=== PATIENT | male | born 1995 | race Caucasian/White ===

== ENCOUNTER 2018-08-11 12:46 | Emergency (ER) | payer OTHER ==
--- NOTE | 2018-08-11 12:55 | Emergency Department Report ---
Blank Doc - Documentation Documentation: This is a 23-year-old male that presents with abdominal discomfort as achimg, cramping and bloating sensation. This initial assessment/diagnostic orders/clinical plan/treatment(s) is/are subject to change based on patient's health status, clinical progression and re-assessment by fellow clinical providers in the ED. Further treatment and workup at subsequent clinical providers discretion. Patient/guardians urged not to elope from the ED as their condition may be serious if not clinically assessed and managed. Initial orders include: 1- Patient sent to [facility] for further evaluation and treatment 2- labs
[2018-08-11 14:14] LABS: Basophils % (Auto) 0.5 % (0.0-1.8); Eosinophils % (Auto) 0.8 % (0.0-4.3); Hematocrit 45.4 % (35.5-45.6); Hemoglobin 15.2 gm/dl (11.8-15.2); Lymphocytes # (Auto) 1.7 K/mm3 (1.2-5.4); Lymphocytes % (Auto) 30.1 % (13.4-35.0); Mean Corpuscular HGB Conc 33 % (32-34); Mean Corpuscular Volume 92 fl (84-94); Monocytes # (Auto) 0.3 K/mm3 (0.0-0.8); Monocytes % (Auto) 5.2 % (0.0-7.3); Red Blood Count 4.95 M/mm3 (3.65-5.03); Red Cell Distribution Width 13.9 % (13.2-15.2)
[2018-08-11 14:17] LABS: Platelet Count 144 K/mm3 (140-440)
[2018-08-11 14:33] LABS: Alanine Aminotransferase 17 units/L (7-56); Albumin 4.9 g/dL (3.9-5); BUN/Creatinine Ratio 14; Blood Urea Nitrogen 10 mg/dL (9-20); Calcium 10.3 mg/dL (8.4-10.2); Hemolysis Index 63
[2018-08-11 14:50] LABS: Bilirubin,Direct < 0.2 mg/dL (0-0.2)
[2018-08-11] MEDS ORDERED: LIDOCAINE VISCOUS 2% PO ONE (15:30)
[2018-08-11] MEDS ORDERED: ALUM-MAG HYDROX-SIMETH 200-200-20MG/5ML PO ONE (15:30)
[2018-08-11 15:47] LABS: Bilirubin,Urine NEG (Negative); Blood,Urine NEG (Negative); Color,Urine Yellow (Yellow); Mucus,Urine 3+ /HPF; Protein,Urine <15 mg/dL mg/dL (Negative)
[2018-08-11] MEDS ORDERED: BENTYL PO ONE (16:00)
--- NOTE | 2018-08-11 16:17 | Emergency Department Report ---
ED Abdominal Pain HPI - General Chief Complaint: Abdominal Pain Stated Complaint: STOMACH PAIN Time Seen by Provider: 08/11/18 12:54 Source: patient Mode of arrival: Ambulatory Limitations: No Limitations - History of Present Illness Initial Comments: Pt is a 23 yo male who presents to the ED with c/o left sided abd pain that began 3 days ago. He describes it as a cramping. He states that he feels "bloated." The patient states he does feel constipated. He has associated nausea. He denies any emesis, urinary sx, fever, or diarrhea. He denies any PMHx . He denies any medication allergies. He states he is a vegetarian. Severity scale (0 -10): 5 - Related Data Previous Rx's Medication Instructions Recorded Last Taken Type Dicyclomine [Bentyl] 10 mg PO DAILY PRN #14 capsule 08/11/18 Unknown Rx Docusate Sodium [Colace] 100 mg PO BID 7 Days #14 capsule 08/11/18 Unknown Rx Polyethylene Glycol 3350 [Miralax] 119 gm PO DAILY PRN #7 powder 08/11/18 Unknown Rx Allergies Allergy/AdvReac Type Severity Reaction Status Date / Time No Known Allergies Allergy Unverified 08/11/18 12:47 ED Review of Systems ROS: Stated complaint: STOMACH PAIN Other details as noted in HPI Comment: All other systems reviewed and negative ED Past Medical Hx - Past Medical History Previous Medical History?: No - Surgical History Past Surgical History?: No - Social History Smoking Status: Never Smoker Substance Use Type: Marijuana - Medications Home Medications: Home Medications Medication Instructions Recorded Confirmed Last Taken Type Dicyclomine [Bentyl] 10 mg PO DAILY PRN #14 capsule 08/11/18 Unknown Rx Docusate Sodium [Colace] 100 mg PO BID 7 Days #14 capsule 08/11/18 Unknown Rx Polyethylene Glycol 3350 [Miralax] 119 gm PO DAILY PRN #7 powder 08/11/18 Unknown Rx ED Physical Exam - General Limitations: No Limitations General appearance: alert, in no apparent distress - Head Head exam: Present: atraumatic, normocephalic - Eye Eye exam: Present: normal appearance - ENT ENT exam: Present: mucous membranes moist - Respiratory Respiratory exam: Present: normal lung sounds bilaterally. Absent: respiratory distress, wheezes, rales, rhonchi, stridor, chest wall tenderness, accessory muscle use, decreased breath sounds, prolonged expiratory - Cardiovascular Cardiovascular Exam: Present: regular rate, normal rhythm, normal heart sounds. Absent: systolic murmur, diastolic murmur, rubs, gallop - GI/Abdominal GI/Abdominal exam: Present: soft, normal bowel sounds. Absent: distended, tenderness, guarding, rebound, rigid - Back Exam Back exam: Absent: CVA tenderness (R), CVA tenderness (L) - Neurological Exam Neurological exam: Present: alert, oriented X3 - Psychiatric Psychiatric exam: Present: normal affect, normal mood - Skin Skin exam: Present: warm, dry, intact ED Course Vital Signs 08/11/18 08/11/18 12:54 16:50 Temperature 98.4 F Pulse Rate 96 H 90 Respiratory 18 16 Rate Blood Pressure 103/57 Blood Pressure 106/60 [Left] O2 Sat by Pulse 100 100 Oximetry ED Medical Decision Making - Lab Data Result diagrams: 08/11/18 13:27 08/11/18 13:27 Lab Results 08/11/18 08/11/18 08/11/18 Range/Units 13:27 13:27 Unknown WBC 5.8 (4.5-11.0) K/mm3 RBC 4.95 (3.65-5.03) M/mm3 Hgb 15.2 (11.8-15.2) gm/dl Hct 45.4 (35.5-45.6) % MCV 92 (84-94) fl MCH 31 (28-32) pg MCHC 33 (32-34) % RDW 13.9 (13.2-15.2) % Plt Count 144 (140-440) K/mm3 Lymph % (Auto) 30.1 (13.4-35.0) % [place] % (Auto) 5.2 (0.0-7.3) % Eos % (Auto) 0.8 (0.0-4.3) % Baso % (Auto) 0.5 (0.0-1.8) % Lymph # 1.7 (1.2-5.4) K/mm3 [place] # 0.3 (0.0-0.8) K/mm3 Eos # 0.0 (0.0-0.4) K/mm3 Baso # 0.0 (0.0-0.1) K/mm3 Seg Neutrophils % 63.4 (40.0-70.0) % Seg Neutrophils # 3.7 (1.8-7.7) K/mm3 Sodium 141 (137-145) mmol/L Potassium 4.1 (3.6-5.0) mmol/L Chloride 100.9 (98-107) mmol/L Carbon Dioxide 26 (22-30) mmol/L Anion Gap 18 mmol/L BUN 10 (9-20) mg/dL Creatinine 0.7 L (0.8-1.5) mg/dL Estimated GFR > 60 ml/min BUN/Creatinine Ratio 14 % Glucose 99 (75-100) mg/dL Calcium 10.3 H (8.4-10.2) mg/dL Total Bilirubin 0.80 (0.1-1.2) mg/dL Direct Bilirubin < 0.2 (0-0.2) mg/dL Indirect Bilirubin 0.6 mg/dL AST 24 (5-40) units/L ALT 17 (7-56) units/L Alkaline Phosphatase 63 (35-129) units/L Total Protein 8.1 (6.3-8.2) g/dL Albumin 4.9 (3.9-5) g/dL Albumin/Globulin Ratio 1.5 % Lipase 14 (13-60) units/L Urine Color Yellow (Yellow) Urine Turbidity Clear (Clear) Urine pH 6.0 (5.0-7.0) Ur Specific [place] 1.038 H (1.003-1.030) Urine Protein <15 mg/dl (Negative) mg/dL Urine Glucose (UA) Neg (Negative) mg/dL Urine Ketones Tr (Negative) mg/dL Urine Blood Neg (Negative) Urine Nitrite Neg (Negative) Urine Bilirubin Neg (Negative) Urine Urobilinogen 4.0 (<2.0) mg/dL Ur Leukocyte Esterase Neg (Negative) Urine WBC (Auto) 3.0 (0.0-6.0) /HPF Urine RBC (Auto) 3.0 (0.0-6.0) /HPF Urine Mucus 3+ /HPF - Radiology Data Radiology results: report reviewed XR abdomen: some stool in the colon, otherwise normal - Medical Decision Making Pt is a 23 yo male who presents to the ED with c/o left sided abd pain that began 3 days ago. He describes it as a cramping. He states that he feels "bloat ed." The patient states he does feel constipated. He has associated nausea. He denies any emesis, urinary sx, fever, or diarrhea. He denies any PMHx. He denies any medication allergies. He states he is a vegetarian. VSS. no abdominal tenderness on exam, normal bowel sounds. labs WNL. UA is normal. XR abdomen shows some stool otherwise normal. Pt given GI cocktail and symptoms completely resolved. Pt given medication for constipation and bentyl. Advised to follow up with PCP in the next 2-3 days. Return to the emergency room for any new or worsening symptoms. Critical care attestation.: If time is entered above; I have spent that time in minutes in the direct care o f this critically ill patient, excluding procedure time. ED Disposition Clinical Impression: Abdominal pain Qualifiers: Abdominal location: generalized Qualified Code(s): R10.84 - Generalized abdominal pain Constipation Qualifiers: Constipation type: unspecified constipation type Qualified Code(s): K59.00 - Constipation, unspecified Disposition: TO HOME OR SELFCARE Is pt being admited?: No Does the pt Need Aspirin: No Condition: Stable Instructions: Constipation (ED), High Fiber Diet (ED), Abdominal Pain (ED) Additional Instructions: Please follow up with a primary care doctor in the next 2-3 days. Please take medication as prescribed. Return to the emergency room immediately for any new or worsening symptoms as discussed. Prescriptions: Dicyclomine [Bentyl] 10 mg PO DAILY PRN #14 capsule PRN Reason: Spasms Docusate Sodium [Colace] 100 mg PO BID 7 Days #14 capsule Polyethylene Glycol 3350 [Miralax] 119 gm PO DAILY PRN #7 powder PRN Reason: Constipation [facility] [Primary Care Provider[facility] - 2-3 Days Time of Disposition: 16:42 Print Language: CITIZEN OF [place]
--- NOTE | 2018-08-11 16:21 | XRay Report ---
PROCEDURE: XR ABDOMEN 2V TECHNIQUE: Abdominal series, including supine and upright AP views. HISTORY: constipation, cramping FINDINGS: Supine and erect views of the abdomen were acquired and demonstrate air within nondistended loops of small bowel and large bowel. No bowel obstruction is seen. Some stool seen in the colon. The patient does not appear to be overly constipated. IMPRESSION: No bowel obstruction This document is electronically signed by Robel Bravo MD., August 11 2018 04:18:51 PM ET
[2018-08-11 16:52] VITALS: BP 106/60
== END 2018-08-11 16:49 | disposition home or self-care (01) ==
LOC: ED 12:46
DX: K59.00 Constipation, unspecified (principal); F12.10 Cannabis abuse, uncomplicated
CPT/HCPCS: 36415; 74019; 80048; 80076; 81001; 83690; 85025

== ENCOUNTER 2018-09-26 18:46 | Emergency (ER) | payer SELFPAY ==
--- NOTE | 2018-09-26 20:19 | Event Note ---
ED Screening Note ED Screening Note: pt presents for suprapubic abd pain pt believes he has a hernia in the "left testicle," c/o left testicle pain for a week pt is vegetarian normal BM yesterday no N/V no fever small amount of clear penile discharge +urgency, +decreased urination +smoker no drug use no ETOH use This initial assessment/diagnostic orders/clinical plan/treatment(s) is/are subject to change based on patients health status, clinical progression and re- assessment by fellow clinical providers in the ED. Further treatment and workup at subsequent clinical providers discretion. Patient/guardian urged not to elope from the ED as their condition may be serious if not clinically assessed and managed. Initial orders include: UA, scrotal US
[2018-09-26 21:36] LABS: Bilirubin,Urine NEG (Negative); Blood,Urine NEG (Negative); Color,Urine Yellow (Yellow); Mucus,Urine 3+ /HPF; Protein,Urine <15 mg/dL mg/dL (Negative)
[2018-09-26 21:37] LABS: WBC,Urine < 1.0 /HPF (0.0-6.0)
--- NOTE | 2018-09-26 22:04 | Ultrasound Report ---
PROCEDURE: US TESTICULAR DOPPLER COMP TECHNIQUE: Scrotal ultrasound HISTORY: left testicular pain COMPARISONS: None FINDINGS: Examination of the testicles demonstrates both to be normal in size and normal and homogeneous in ech ogenicity with normal blood flow bilaterally. No focal abnormality is noted in either testicle. The r ight testicle measures 3.9 x 2.1 x 4.0 cm and the left measures 3.7 x 1.9 x 2.9 cm. Both epididymides appear normal in size and echogenicity with normal blood flow. No focal abnormality is noted. No evidence for hydroceles or varicoceles are present bilaterally. IMPRESSION: Negative testicular ultrasound This document is electronically signed by Vicki Grande MD., September 26 2018 10:02:42 PM ET
[2018-09-26 22:07] LABS: Basophils % (Auto) 0.4 % (0.0-1.8); Eosinophils % (Auto) 0.4 % (0.0-4.3); Hematocrit 43.8 % (35.5-45.6); Hemoglobin 15.1 gm/dl (11.8-15.2); Lymphocytes % (Auto) 31.3 % (13.4-35.0); Mean Corpuscular HGB Conc 34 % (32-34); Mean Corpuscular Volume 90 fl (84-94); Monocytes # (Auto) 0.4 K/mm3 (0.0-0.8); Monocytes % (Auto) 6.4 % (0.0-7.3); Platelet Count 152 K/mm3 (140-440); Red Blood Count 4.87 M/mm3 (3.65-5.03); Red Cell Distribution Width 12.9 % (13.2-15.2)
[2018-09-26 23:01] LABS: Alanine Aminotransferase 12 units/L (7-56); Albumin 4.8 g/dL (3.9-5); BUN/Creatinine Ratio 17; Blood Urea Nitrogen 12 mg/dL (9-20); Hemolysis Index 3
--- NOTE | 2018-09-26 23:19 | Emergency Department Report ---
ED Male HPI - General Chief complaint: Urogenital-Male Stated complaint: BODY PAIN ALL OVER Time Seen by Provider: 09/26/18 20:15 Source: patient Mode of arrival: Ambulatory Limitations: No Limitations - History of Present Illness MD Complaint: testicle pain (left), dysuria, groin pain, other (Suprapubic pressure) -: Gradual, week(s) (1) Location: left testicle, right inguinal region, left inguinal region Radiation: none Severity: moderate Severity scale (0 -10): 4 Quality: aching, dull Consistency: constant Improves with: none Worsens with: palpation, movement new medication denies other symptoms. denies: discharge, swelling, mass, rash, urinary retention, blood in urine, dysuria, fever, nausea/vomiting, incontinence - Related Data Sexually active: Yes Previous Rx's Medication Instructions Recorded Last Taken Type Dicyclomine [Bentyl] 10 mg PO DAILY PRN #14 capsule 08/11/18 Unknown Rx Docusate Sodium [Colace] 100 mg PO BID 7 Days #14 capsule 08/11/18 Unknown Rx Polyethylene Glycol 3350 [Miralax] 119 gm PO DAILY PRN #7 powder 08/11/18 Unknown Rx Naproxen [Naprosyn] 500 mg PO Q12H PRN #20 tablet 09/26/18 Unknown Rx Allergies Allergy/AdvReac Type Severity Reaction Status Date / Time No Known Allergies Allergy Verified 09/26/18 18:47 ED Review of Systems ROS: Stated complaint: BODY PAIN ALL OVER Other details as noted in HPI Comment: All other systems reviewed and negative Constitutional: denies: chills, fever Eyes: denies: eye pain, eye discharge, vision change ENT: denies: ear pain, throat pain Respiratory: denies: cough, shortness of breath, wheezing Cardiovascular: denies: chest pain, palpitations Endocrine: no symptoms reported Gastrointestinal: abdominal pain (suprapubic pressure). denies: nausea, diarrhea Genitourinary: urgency, dysuria, frequency, testicular pain (left). denies: hematuria, discharge Musculoskeletal: denies: back pain, joint swelling, arthralgia Skin: denies: rash, lesions Neurological: denies: headache, weakness, paresthesias Psychiatric: denies: anxiety, depression Hematological/Lymphatic: denies: easy bleeding, easy bruising ED Past Medical Hx - Past Medical History Previous Medical History?: No - Surgical History Past Surgical History?: No - Social History Smoking Status: Current Every Day Smoker Substance Use Type: None - Medications Home Medications: Home Medications Medication Instructions Recorded Confirmed Last Taken Type Dicyclomine [Bentyl] 10 mg PO DAILY PRN #14 capsule 08/11/18 Unknown Rx Docusate Sodium [Colace] 100 mg PO BID 7 Days #14 capsule 08/11/18 Unknown Rx Polyethylene Glycol 3350 [Miralax] 119 gm PO DAILY PRN #7 powder 08/11/18 Unknown Rx Naproxen [Naprosyn] 500 mg PO Q12H PRN #20 tablet 09/26/18 Unknown Rx ED Physical Exam - General Limitations: No Limitations General appearance: alert, in no apparent distress - Head Head exam: Present: atraumatic, normocephalic, normal inspection - Eye Eye exam: Present: normal appearance, PERRL, EOMI Pupils: Present: normal accommodation - ENT ENT exam: Present: normal exam, mucous membranes moist, TM's normal bilaterally, normal external ear exam - Neck Neck exam: Present: normal inspection, full ROM. Absent: tenderness - Respiratory Respiratory exam: Present: normal lung sounds bilaterally. Absent: respiratory distress, wheezes, rales, rhonchi, chest wall tenderness, decreased breath sounds, prolonged expiratory - Cardiovascular Cardiovascular Exam: Present: regular rate, normal rhythm, normal heart sounds. Absent: systolic murmur, diastolic murmur, rubs, gallop - GI/Abdominal GI/Abdominal exam: Present: soft, normal bowel sounds. Absent: tenderness, guarding, rebound, hyperactive bowel sounds - Rectal Rectal exam: Present: deferred - exam: Present: normal inspection. Absent: testicular tenderness, urethral discharge, scrotal swelling, vertical testicular lie External exam: Present: normal external exam. Absent: erythema, swelling - Extremities Exam Extremities exam: Present: normal inspection, full ROM, normal capillary refill - Back Exam Back exam: Present: normal inspection, full ROM. Absent: tenderness, CVA tenderness (R), CVA tenderness (L), muscle spasm, paraspinal tenderness, vertebral tenderness - Neurological Exam Neurological exam: Present: alert, oriented X3, CN II-XII intact, normal gait, reflexes normal - Psychiatric Psychiatric exam: Present: normal affect, normal mood - Skin Skin exam: Present: warm, dry, intact, normal color. Absent: rash ED Course Vital Signs 09/26/18 20:15 Temperature 98.1 F Pulse Rate 74 Respiratory 18 Rate Blood Pressure 108/58 O2 Sat by Pulse 99 Oximetry - Reevaluation(s) Reevaluation #1: 09/26/18 23:21 Patient is alert and oriented 3 and is not in any distress. Lab test results were reviewed and are unremarkable. Testicular ultrasound shows normal acute process. Patient was discharged home and advised follow-up with the urologist Dr. Champagne in 2-3 days for reevaluation. Patient advised to return to the ED immediately if symptoms get worse. ED Medical Decision Making - Lab Data Result diagrams: 09/26/18 21:46 09/26/18 21:46 - Radiology Data Radiology results: report reviewed, image reviewed Normal testicles. No acute process - Medical Decision Making Patient is alert and oriented 3 and is not in any distress. Lab test results were reviewed and are unremarkable. Testicular ultrasound shows normal acute process. Patient was discharged home and advised follow-up with the urologist Dr. Champagne in 2-3 days for reevaluation. Patient advised to return to the ED immediately if symptoms get worse. - Differential Diagnosis Inguinal muscle strain; Testicular pain, epididymitis, Critical care attestation.: If time is entered above; I have spent that time in minutes in the direct care of this critically ill patient, excluding procedure time. ED Disposition Clinical Impression: Left testicular pain Inguinal muscle strain Qualifiers: Encounter type: initial encounter Qualified Code(s): S39.013A - Strain of muscle, fascia and tendon of pelvis, initial encounter Disposition: - TO HOME OR SELFCARE Is pt being admited?: No Does the pt Need Aspirin: No Condition: Stable Instructions: Muscle Strain (ED), Groin Strain (ED), Testicle Pain (ED) Additional Instructions: Take medications with food, drink plenty of fluids and follow-up with Dr. Champagne the Urologist publications manager for further evaluation in 3-5 days. Return to ED immediately if symptoms get worse. Prescriptions: Naproxen [Naprosyn] 500 mg PO Q12H PRN #20 tablet PRN Reason: Pain , Severe (7-10) Referrals: MIKE MORENO MD [Primary Care Provider] - 3-5 Days Time of Disposition: 23:25 Print Language: [place]
[2018-09-26 23:40] VITALS: BP 111/62
== END 2018-09-26 23:39 | disposition home or self-care (01) ==
LOC: ED 18:46
DX: S39.013A Strain of muscle, fascia and tendon of pelvis, initial encounter (principal); F17.200 Nicotine dependence, unspecified, uncomplicated; X58.XXXA Exposure to other specified factors, initial encounter; Y93.89 Activity, other specified; Y92.89 Other specified places as the place of occurrence of the external cause; Y99.8 Other external cause status
CPT/HCPCS: 36415; 80053; 81001; 83690; 85025; 93975

== ENCOUNTER 2019-04-25 18:46 | Emergency (ER) | payer SELFPAY ==
[2019-04-25 19:13] VITALS: BP 92/41
--- NOTE | 2019-04-25 22:53 | Emergency Department Report ---
ED Rash HPI - HPI Chief Complaint: Skin Rash Stated Complaint: ALLERGIC REACTION Time Seen by Provider: 04/25/19 21:59 Duration: 3 Days Suspected Cause: Medication Rash Symptoms: Yes Itching, No Facial Swelling, No Tongue/Oral Swelling, No Breathing Difficulties, No Choking Sensation, No Lightheaded, No Malaise, No Myalgias ED Review of Systems ROS: Stated complaint: ALLERGIC REACTION Other details as noted in HPI Comment: All other systems reviewed and negative ED Past Medical Hx - Past Medical History Previous Medical History?: No - Surgical History Past Surgical History?: Yes Additional Surgical History: rhinoplasty - Social History Smoking Status: Current Every Day Smoker Substance Use Type: Marijuana - Medications Home Medications: Home Medications Medication Instructions Recorded Confirmed Last Taken Type Dicyclomine [Bentyl] 10 mg PO DAILY PRN #14 capsule 08/11/18 Unknown Rx Docusate Sodium [Colace] 100 mg PO BID 7 Days #14 capsule 08/11/18 Unknown Rx Polyethylene Glycol 3350 [Miralax] 119 gm PO DAILY PRN #7 powder 08/11/18 Unknown Rx Naproxen [Naprosyn] 500 mg PO Q12H PRN #20 tablet 09/26/18 Unknown Rx Mometasone Furoate [Elocon] 45 gm TP BID #1 cream..g. 04/25/19 Unknown Rx Permethrin 5% [Acticin 5% CREAM] 60 gm TP ONCE #1 tube 04/25/19 Unknown Rx hydrOXYzine HCL [Atarax] 25 mg PO Q6HR PRN #20 tablet 04/25/19 Unknown Rx Rash Exam - Exam General: Vital signs noted. No distress. Alert and acting appropriately. HEENT: No Periorbital Edema, No Conjuctival Injection, No Chemosis, No Perioral Edema, No Tongue Edema, No Uvular Edema, No Compromised Airway, No Drooling Lungs: Yes Good Air Exchange (Normal Breath Sounds), No Wheezes, No Ronchi, No Stridor, No Cough, No Labored Respirations, No Retractions, No Use of Accessory Muscles, No Other Abnormal Lung Sounds Heart: Yes Regular, No Murmur Skin: Yes Maculopapular Rash (rash to the creases of the arm and the posterior leg and crevices of the thighs axillary region), Yes Erythema, No Urticarial Rash, No Morbilliform rash, No Bulla(e), No Excoriations, No Weeping, No Edema, No Encrustations Other: Positive: Abdomen Normal, Neurologic Normal, Musculoskeletal Normal ED Course Vital Signs 04/25/19 19:11 Temperature 97.8 F Pulse Rate 78 Respiratory 18 Rate Blood Pressure 92/41 O2 Sat by Pulse 96 Oximetry ED Medical Decision Making - Medical Decision Making This is a 24 year old male patient who presents with rash for the past week, consistent with exanthem. Differential diagnosis includes contact//atopic//eczematous dermatitis, psoriasis, scabies. History and exam findings not consistent with dangerous etiologies of rash such as SJS/TEN, or secondary dangerous causes such as petechial rashes from thrombocytopenia or rickettsial infections. Plan at this time is to treat symptomatically, instruct to follow up with PCP or derm PRN. Critical care attestation.: If time is entered above; I have spent that time in minutes in the direct care of this critically ill patient, excluding procedure time. ED Disposition Clinical Impression: Rash Disposition: DC-01 TO HOME OR SELFCARE Is pt being admited?: No Does the pt Need Aspirin: No Condition: Stable Instructions: Acute Rash (ED), Scabies (ED) Prescriptions: Permethrin 5% [Acticin 5% CREAM] 60 gm TP ONCE #1 tube hydrOXYzine HCL [Atarax] 25 mg PO Q6HR PRN #20 tablet PRN Reason: Itching Mometasone Furoate [Elocon] 45 gm TP BID #1 cream..g. Referrals: TAYLOR SHUKLA MD [Staff Physician] - 3-5 Days
== END 2019-04-25 22:52 | disposition home or self-care (01) ==
LOC: ED 18:46
DX: R21 Rash and other nonspecific skin eruption (principal); L29.9 Pruritus, unspecified; F17.200 Nicotine dependence, unspecified, uncomplicated; F12.10 Cannabis abuse, uncomplicated; Z79.899 Other long term (current) drug therapy
CPT/HCPCS: 99282

== ENCOUNTER 2019-10-31 02:31 | Emergency (ER) | payer SELFPAY ==
[2019-10-31 03:47] LABS: Bilirubin,Urine NEG (Negative); Blood,Urine LG (Negative); Color,Urine Yellow (Yellow); Mucus,Urine 3+ /HPF; Urobilinogen,Urine < 2.0 mg/dL (<2.0)
[2019-10-31 04:14] LABS: RBC,Urine > 182.0 /HPF (0.0-6.0)
[2019-10-31 04:27] LABS: Basophils % (Auto) 0.3 % (0.0-1.8); Eosinophils # (Auto) 0.1 K/mm3 (0.0-0.4); Hematocrit 43.9 % (35.5-45.6); Hemoglobin 14.8 gm/dl (11.8-15.2); Lymphocytes # (Auto) 2.8 K/mm3 (1.2-5.4); Lymphocytes % (Auto) 40.8 % (13.4-35.0); Mean Corpuscular HGB Conc 34 % (32-34); Mean Corpuscular Volume 91 fl (84-94); Monocytes # (Auto) 0.5 K/mm3 (0.0-0.8); Platelet Count 150 K/mm3 (140-440); Red Blood Count 4.82 M/mm3 (3.65-5.03); Red Cell Distribution Width 13.1 % (13.2-15.2)
[2019-10-31 05:03] LABS: Alanine Aminotransferase 11 units/L (7-56); Albumin 4.7 g/dL (3.9-5); BUN/Creatinine Ratio 19; Blood Urea Nitrogen 13 mg/dL (9-20); Calcium 9.9 mg/dL (8.4-10.2); Hemolysis Index 12
--- NOTE | 2019-10-31 08:38 | Cat Scan Report ---
CT abdomen pelvis wo con INDICATION: flank and right pelvic pain. TECHNIQUE: All CT scans at this location are performed using the following dose modulation technique: Automated exposure control. CONTRAST: None. COMPARISON: None available. CT ABDOMEN: The parenchymal organs are unremarkable in appearance. Negative for abdominal mass, flui d or inflammation. The bowel is not dilated or thickened. CT PELVIS: Normal appendix. Negative for pelvic mass, fluid or inflammation. A stone at the bladder b ase measures 3 mm. IMPRESSION: 3 mm stone at the base of the bladder has likely recently passed. Signer Name: Wai Mosley MD Signed: 10/31/2019 8:33 AM Workstation Name: [id number]
--- NOTE | 2019-10-31 09:56 | Emergency Department Report ---
ED Male HPI - General Chief complaint: Abdominal Pain Stated complaint: RT SIDE/BACK PAIN Time Seen by Provider: 10/31/19 07:49 Source: patient Mode of arrival: Ambulatory Limitations: No Limitations - History of Present Illness Initial comments: 24-year-old male presents emergency department complaining of flank pain started around 1 AM this morning spontaneously. He reports he is a vegetarian is unsure of the cause this was possible patient reported nausea and vomiting with the initial presentation he reports having some bloody urine 2 to 3 hours ago here in the emergency department he states that his pain has spontaneously resolved since utilizing that the bathroom short short time ago -: Gradual Severity: mild Quality: dull Consistency: constant Worsens with: urination blood in urine. denies: discharge, swelling, nausea/vomiting, incontinence - Related Data Previous Rx's Medication Instructions Recorded Last Taken Type Dicyclomine [Bentyl] 10 mg PO DAILY PRN #14 capsule 08/11/18 Unknown Rx Docusate Sodium [Colace] 100 mg PO BID 7 Days #14 capsule 08/11/18 Unknown Rx Polyethylene Glycol 3350 [Miralax] 119 gm PO DAILY PRN #7 powder 08/11/18 Unknown Rx Naproxen [Naprosyn] 500 mg PO Q12H PRN #20 tablet 09/26/18 Unknown Rx Mometasone Furoate [Elocon] 45 gm TP BID #1 cream..g. 04/25/19 Unknown Rx Permethrin 5% [Acticin 5% CREAM] 60 gm TP ONCE #1 tube 04/25/19 Unknown Rx hydrOXYzine HCL [Atarax] 25 mg PO Q6HR PRN #20 tablet 04/25/19 Unknown Rx Ketorolac [Toradol] 10 mg PO Q6H PRN #7 tablet 10/31/19 Unknown Rx Allergies Allergy/AdvReac Type Severity Reaction Status Date / Time No Known Allergies Allergy Verified 09/26/18 18:47 ED Review of Systems ROS: Stated complaint: RT SIDE/BACK PAIN Other details as noted in HPI Comment: All other systems reviewed and negative ED Past Medical Hx - Past Medical History Previous Medical History?: No - Surgical History Past Surgical History?: Yes Additional Surgical History: rhinoplasty - Social History Smoking Status: Current Every Day Smoker Substance Use Type: Marijuana - Medications Home Medications: Home Medications Medication Instructions Recorded Confirmed Last Taken Type Dicyclomine [Bentyl] 10 mg PO DAILY PRN #14 capsule 08/11/18 Unknown Rx Docusate Sodium [Colace] 100 mg PO BID 7 Days #14 capsule 08/11/18 Unknown Rx Polyethylene Glycol 3350 [Miralax] 119 gm PO DAILY PRN #7 powder 08/11/18 Unknown Rx Naproxen [Naprosyn] 500 mg PO Q12H PRN #20 tablet 09/26/18 Unknown Rx Mometasone Furoate [Elocon] 45 gm TP BID #1 cream..g. 04/25/19 Unknown Rx Permethrin 5% [Acticin 5% CREAM] 60 gm TP ONCE #1 tube 04/25/19 Unknown Rx hydrOXYzine HCL [Atarax] 25 mg PO Q6HR PRN #20 tablet 04/25/19 Unknown Rx Ketorolac [Toradol] 10 mg PO Q6H PRN #7 tablet 10/31/19 Unknown Rx ED Physical Exam - General Limitations: No Limitations General appearance: alert, in no apparent distress - Head Head exam: Present: atraumatic, normocephalic - Eye Eye exam: Present: normal appearance - ENT ENT exam: Present: mucous membranes moist - Neck Neck exam: Present: normal inspection - Respiratory Respiratory exam: Present: normal lung sounds bilaterally. Absent: respiratory distress - Cardiovascular Cardiovascular Exam: Present: regular rate, normal rhythm. Absent: systolic murmur, diastolic murmur, rubs, gallop - GI/Abdominal GI/Abdominal exam: Present: soft, normal bowel sounds - Rectal Rectal exam: Present: deferred. Absent: decreased rectal tone - Extremities Exam Extremities exam: Present: normal inspection, normal capillary refill - Back Exam Back exam: Present: normal inspection, CVA tenderness (R) - Neurological Exam Neurological exam: Present: alert, oriented X3 - Psychiatric Psychiatric exam: Present: normal affect, normal mood - Skin Skin exam: Present: warm, dry, intact, normal color. Absent: rash ED Medical Decision Making - Lab Data Result diagrams: 10/31/19 03:44 10/31/19 03:44 Lab Results 10/31/19 10/31/19 10/31/19 Range/Units 03:13 03:44 03:44 WBC 6.8 (4.5-11.0) K/mm3 RBC 4.82 (3.65-5.03) M/mm3 Hgb 14.8 (11.8-15.2) gm/dl Hct 43.9 (35.5-45.6) % MCV 91 (84-94) fl MCH 31 (28-32) pg MCHC 34 (32-34) % RDW 13.1 L (13.2-15.2) % Plt Count 150 (140-440) K/mm3 Lymph % (Auto) 40.8 H (13.4-35.0) % [place] % (Auto) 7.0 (0.0-7.3) % Eos % (Auto) 1.0 (0.0-4.3) % Baso % (Auto) 0.3 (0.0-1.8) % Lymph # 2.8 (1.2-5.4) K/mm3 [place] # 0.5 (0.0-0.8) K/mm3 Eos # 0.1 (0.0-0.4) K/mm3 Baso # 0.0 (0.0-0.1) K/mm3 Seg Neutrophils % 50.9 (40.0-70.0) % Seg Neutrophils # 3.4 (1.8-7.7) K/mm3 Sodium 140 (137-145) mmol/L Potassium 4.1 (3.6-5.0) mmol/L Chloride 102.2 (98-107) mmol/L Carbon Dioxide 22 (22-30) mmol/L Anion Gap 20 mmol/L BUN 13 (9-20) mg/dL Creatinine 0.7 L (0.8-1.5) mg/dL Estimated GFR > 60 ml/min BUN/Creatinine Ratio 19 % Glucose 118 H (75-100) mg/dL Calcium 9.9 (8.4-10.2) mg/dL Total Bilirubin 0.60 (0.1-1.2) mg/dL AST 18 (5-40) units/L ALT 11 (7-56) units/L Alkaline Phosphatase 62 (35-129) units/L Total Protein 8.1 (6.3-8.2) g/dL Albumin 4.7 (3.9-5) g/dL Albumin/Globulin Ratio 1.4 % Urine Color Yellow (Yellow) Urine Turbidity Slightly-cloudy (Clear) Urine pH 5.0 (5.0-7.0) Ur Specific [place] 1.029 (1.003-1.030) Urine Protein 30 mg/dl (Negative) mg/dL Urine Glucose (UA) Neg (Negative) mg/dL Urine Ketones Tr (Negative) mg/dL Urine Blood Lg (Negative) Urine Nitrite Neg (Negative) Urine Bilirubin Neg (Negative) Urine Urobilinogen < 2.0 (<2.0) mg/dL Ur Leukocyte Esterase Neg (Negative) Urine WBC (Auto) 2.0 (0.0-6.0) /HPF Urine RBC (Auto) > 182.0 (0.0-6.0) /HPF U Epithel Cells (Auto) < 1.0 (0-13.0) /HPF Urine Mucus 3+ /HPF - Radiology Data Radiology results: report reviewed SARA JONO FLEMING Gender: Male Date of : 1995 Referring Provider: DION PRECIAOD Organization: [facility] Accession Number: [id number] Requested Date: October 31, 2019 07:51 Report Status: Final Requested Procedure: 1 Procedure Description: CT abdomen pelvis wo con Modality: CT Findings Reporting MD: Wai Mosley Dictation Time: October 31, 2019 07:33 Industrial Relations Representative: Not available Job Forwarder Date: CT abdomen pelvis wo con INDICATION: flank and right pelvic pain. TECHNIQUE: All CT scans at this location are performed using the following dose modulation technique: Automated exposure control. CONTRAST: None. COMPARISON: None available. CT ABDOMEN: The parenchymal organs are unremarkable in appearance. Negative for abdominal mass, fluid or inflammation. The bowel is not dilated or thickened. CT PELVIS: Normal appendix. Negative for pelvic mass, fluid or inflammation. A stone at the bladder base measures 3 mm. IMPRESSION: 3 mm stone at the base of the bladder has likely recently passed. Signer Name: Wai Mosley MD Signed: 10/31/2019 7:33 AM Workstation Name: [id number] Critical care attestation.: If time is entered above; I have spent that time in minutes in the direct care of this critically ill patient, excluding procedure time. ED Disposition Clinical Impression: Kidney stone on right side Disposition: DC-01 TO HOME OR SELFCARE Is pt being admited?: No Does the pt Need Aspirin: No Condition: Stable Instructions: Kidney Stones (ED), How to Strain Your Urine (ED) Additional Instructions: According to the CT scan you have passed your kidney stone which now resides in your bladder which still needs to be evacuated via the urethra with urination so strain your urine as we discussed with the appropriate straining device that was provided to you on upon discharge. Referrals: [facility] [Provider Group] - 2-3 Days [facility] [Provider Group] - 3-5 Days [facility], [Primary Care Provider] - 3-5 Days
[2019-10-31 10:17] VITALS: BP 107/64
== END 2019-10-31 10:13 | disposition home or self-care (01) ==
LOC: ED 02:31
DX: N20.0 Calculus of kidney (principal); F17.200 Nicotine dependence, unspecified, uncomplicated; F12.10 Cannabis abuse, uncomplicated; Z98.890 Other specified postprocedural states; Z79.899 Other long term (current) drug therapy
CPT/HCPCS: 36415; 74176; 80053; 81001; 85025

== ENCOUNTER 2020-05-13 13:41 | Emergency (ER) | payer SELFPAY ==
[2020-05-13 13:52] VITALS: BP 116/62
--- NOTE | 2020-05-13 13:57 | Event Note ---
ED Screening Note ED Screening Note: abd pain and testicular pain and white discharge sex active bisexual diarrhea-since covid chills no fever HIV 03/12- no prophylactic recent covid rx none psh none pmh none pcp none This initial assessment/diagnostic orders/clinical plan/treatment(s) is/are subject to change based on patients health status, clinical progression and re- assessment by fellow clinical providers in the ED. Further treatment and workup at subsequent clinical providers discretion. Patient/guardian urged not to elope from the ED as their condition may be serious if not clinically assessed and managed. Initial orders include: ua/labs/us
--- NOTE | 2020-05-13 15:15 | Ultrasound Report ---
Scrotal ultrasound INDICATION: Right and left testicular pain FINDINGS: The right testicle measures 3.4 cm the left testicle measures 4.2 cm. No mass lesions are s een. There is normal arterial flow in both testicles. There is a very small right hydrocele. IMPRESSION: There is a very small right hydrocele. This is an otherwise unremarkable exam. There is n o evidence of torsion. No mass lesions are seen. Signer Name: Lb Rojas MD Signed: 05/13/2020 3:11 PM Workstation Name: [id number]
[2020-05-13 16:01] LABS: Basophils % (Auto) 0.2 % (0.0-1.8); Eosinophils % (Auto) 0.6 % (0.0-4.3); Hematocrit 43.1 % (35.5-45.6); Hemoglobin 14.7 gm/dl (11.8-15.2); Lymphocytes # (Auto) 1.1 K/mm3 (1.2-5.4); Lymphocytes % (Auto) 13.4 % (13.4-35.0); Mean Corpuscular HGB Conc 34 % (32-34); Mean Corpuscular Volume 92 fl (84-94); Monocytes # (Auto) 0.6 K/mm3 (0.0-0.8); Monocytes % (Auto) 7.5 % (0.0-7.3); Platelet Count 144 K/mm3 (140-440); Red Blood Count 4.69 M/mm3 (3.65-5.03); Red Cell Distribution Width 12.9 % (13.2-15.2)
[2020-05-13 16:13] LABS: Bilirubin,Urine NEG (Negative); Blood,Urine NEG (Negative); Color,Urine Yellow (Yellow); Mucus,Urine 3+ /HPF
[2020-05-13 16:18] LABS: Blood Urea Nitrogen 10 mg/dL (9-20); Calcium 9.9 mg/dL (8.4-10.2); Hemolysis Index 6
[2020-05-13 16:20] LABS: BUN/Creatinine Ratio 17
[2020-05-13] MEDS ORDERED: LIDOCAINE-MPF (1%) 10 MG/1 ML VIAL 5 ML INFILTRATI ONE (17:47)
[2020-05-13] MEDS ORDERED: AZITHROMYCIN 250 MG TAB PO ONE (17:47)
[2020-05-13] MEDS ORDERED: ONDANSETRON 4 MG ODT TAB PO ONE (17:47)
--- NOTE | 2020-05-13 17:53 | Emergency Department Report ---
ED General Adult HPI - General Chief complaint: Nausea/Vomiting/Diarrhea Stated complaint: BODY AND ABD PAIN Time Seen by Provider: 05/13/20 13:55 Source: patient Mode of arrival: Ambulatory Limitations: No Limitations - History of Present Illness Initial comments: The patient presents to emergency department the chief complaint of body aches, chills and diarrhea for the last 2 days. Patient states he was recently infected with Covid and has been recovering from it for the last 2 weeks. Patient also complains of some penile discharge but states he has not had unprotected intercourse. Patient denies any abdominal pain, shortness breath, or chest pain. Patient later states that he has some testicular discomfort but that resolved couple days ago. -: Gradual Severity scale (0 -10): 2 Quality: aching Consistency: constant Improves with: none Worsens with: none Associated Symptoms: denies other symptoms Treatments Prior to Arrival: none - Related Data Previous Rx's Medication Instructions Recorded Last Taken Type Dicyclomine [Bentyl] 10 mg PO DAILY PRN #14 capsule 08/11/18 Unknown Rx Docusate Sodium [Colace] 100 mg PO BID 7 Days #14 capsule 08/11/18 Unknown Rx Polyethylene Glycol 3350 [Miralax] 119 gm PO DAILY PRN #7 powder 08/11/18 Unknown Rx Naproxen [Naprosyn] 500 mg PO Q12H PRN #20 tablet 09/26/18 Unknown Rx Mometasone Furoate [Elocon] 45 gm TP BID #1 cream..g. 04/25/19 Unknown Rx Permethrin 5% [Acticin 5% CREAM] 60 gm TP ONCE #1 tube 04/25/19 Unknown Rx hydrOXYzine HCL [Atarax] 25 mg PO Q6HR PRN #20 tablet 04/25/19 Unknown Rx Ketorolac [Toradol] 10 mg PO Q6H PRN #7 tablet 10/31/19 Unknown Rx Ondansetron [Zofran Odt] 4 mg PO Q4HR PRN #20 tab.rapdis 05/13/20 Unknown Rx cephALEXin [Keflex] 500 mg PO BID #14 capsule 05/13/20 Unknown Rx Allergies Allergy/AdvReac Type Severity Reaction Status Date / Time No Known Allergies Allergy Verified 09/26/18 18:47 ED Review of Systems ROS: Stated complaint: BODY AND ABD PAIN Other details as noted in HPI Comment: All other systems reviewed and negative Constitutional: chills. denies: fever Eyes: denies: eye pain, eye discharge, vision change ENT: denies: ear pain, throat pain Respiratory: denies: cough, shortness of breath, wheezing Cardiovascular: denies: chest pain, palpitations Endocrine: no symptoms reported Gastrointestinal: nausea, vomiting, diarrhea. denies: abdominal pain Genitourinary: discharge. denies: urgency, dysuria Musculoskeletal: denies: back pain, joint swelling, arthralgia Skin: denies: rash, lesions Neurological: denies: headache, weakness, paresthesias Psychiatric: denies: anxiety, depression Hematological/Lymphatic: denies: easy bleeding, easy bruising ED Past Medical Hx - Surgical History Additional Surgical History: rhinoplasty - Social History Smoking Status: Current Every Day Smoker Substance Use Type: Marijuana - Medications Home Medications: Home Medications Medication Instructions Recorded Confirmed Last Taken Type Dicyclomine [Bentyl] 10 mg PO DAILY PRN #14 capsule 08/11/18 Unknown Rx Docusate Sodium [Colace] 100 mg PO BID 7 Days #14 capsule 08/11/18 Unknown Rx Polyethylene Glycol 3350 [Miralax] 119 gm PO DAILY PRN #7 powder 08/11/18 Unknown Rx Naproxen [Naprosyn] 500 mg PO Q12H PRN #20 tablet 09/26/18 Unknown Rx Mometasone Furoate [Elocon] 45 gm TP BID #1 cream..g. 04/25/19 Unknown Rx Permethrin 5% [Acticin 5% CREAM] 60 gm TP ONCE #1 tube 04/25/19 Unknown Rx hydrOXYzine HCL [Atarax] 25 mg PO Q6HR PRN #20 tablet 04/25/19 Unknown Rx Ketorolac [Toradol] 10 mg PO Q6H PRN #7 tablet 10/31/19 Unknown Rx Ondansetron [Zofran Odt] 4 mg PO Q4HR PRN #20 tab.rapdis 05/13/20 Unknown Rx cephALEXin [Keflex] 500 mg PO BID #14 capsule 05/13/20 Unknown Rx ED Physical Exam - General Limitations: No Limitations General appearance: alert, in no apparent distress - Head Head exam: Present: atraumatic, normocephalic - Eye Eye exam: Present: normal appearance, PERRL, EOMI - ENT ENT exam: Present: mucous membranes moist - Neck Neck exam: Present: normal inspection - Respiratory Respiratory exam: Present: normal lung sounds bilaterally. Absent: respiratory distress - Cardiovascular Cardiovascular Exam: Present: regular rate, normal rhythm. Absent: systolic murmur, diastolic murmur, rubs, gallop - GI/Abdominal GI/Abdominal exam: Present: soft, normal bowel sounds. Absent: distended, tenderness - Rectal Rectal exam: Present: deferred - exam: Present: other (deferred) External exam: Present: other (deferred) - Extremities Exam Extremities exam: Present: normal inspection - Back Exam Back exam: Present: normal inspection - Neurological Exam Neurological exam: Present: alert, oriented X3, CN II-XII intact. Absent: motor sensory deficit - Psychiatric Psychiatric exam: Present: normal affect, normal mood - Skin Skin exam: Present: warm, dry, intact, normal color. Absent: rash ED Course Vital Signs 05/13/20 13:52 Temperature 98.4 F Pulse Rate 131 H Respiratory 19 Rate Blood Pressure 116/62 O2 Sat by Pulse 99 Oximetry ED Medical Decision Making - Lab Data Result diagrams: 05/13/20 15:45 05/13/20 15:45 Lab Results 05/13/20 05/13/20 05/13/20 Range/Units 15:45 15:45 15:48 WBC 8.3 (4.5-11.0) K/mm3 RBC 4.69 (3.65-5.03) M/mm3 Hgb 14.7 (11.8-15.2) gm/dl Hct 43.1 (35.5-45.6) % MCV 92 (84-94) fl MCH 31 (28-32) pg MCHC 34 (32-34) % RDW 12.9 L (13.2-15.2) % Plt Count 144 (140-440) K/mm3 Lymph % (Auto) 13.4 (13.4-35.0) % [place] % (Auto) 7.5 H (0.0-7.3) % Eos % (Auto) 0.6 (0.0-4.3) % Baso % (Auto) 0.2 (0.0-1.8) % Lymph # (Auto) 1.1 L (1.2-5.4) K/mm3 [place] # (Auto) 0.6 (0.0-0.8) K/mm3 Eos # (Auto) 0.0 (0.0-0.4) K/mm3 Baso # (Auto) 0.0 (0.0-0.1) K/mm3 Seg Neutrophils % 78.3 H (40.0-70.0) % Seg Neutrophils # 6.5 (1.8-7.7) K/mm3 Sodium 139 (137-145) mmol/L Potassium 4.1 (3.6-5.0) mmol/L Chloride 101.5 (98-107) mmol/L Carbon Dioxide 32 H (22-30) mmol/L Anion Gap 10 mmol/L BUN 10 (9-20) mg/dL Creatinine 0.6 L (0.8-1.3) mg/dL Estimated GFR > 60 ml/min BUN/Creatinine Ratio 17 % Glucose 90 (75-100) mg/dL Calcium 9.9 (8.4-10.2) mg/dL Urine Color Yellow (Yellow) Urine Turbidity Clear (Clear) Urine pH 5.0 (5.0-7.0) Ur Specific [place] 1.030 (1.003-1.030) Urine Protein 30 mg/dl (Negative) mg/dL Urine Glucose (UA) Neg (Negative) mg/dL Urine Ketones Neg (Negative) mg/dL Urine Blood Neg (Negative) Urine Nitrite Neg (Negative) Urine Bilirubin Neg (Negative) Urine Urobilinogen 4.0 (<2.0) mg/dL Ur Leukocyte Esterase Sm (Negative) Urine WBC (Auto) 22.0 H (0.0-6.0) /HPF Urine RBC (Auto) 3.0 (0.0-6.0) /HPF U Epithel Cells (Auto) < 1.0 (0-13.0) /HPF Urine Mucus 3+ /HPF - Radiology Data Radiology results: report reviewed - Medical Decision Making Discussed results with patient On my exam prior to discharge patient's heart rate is 92 Critical care attestation.: If time is entered above; I have spent that time in minutes in the direct care of this critically ill patient, excluding procedure time. ED Disposition Clinical Impression: Hydrocele in adult, UTI (urinary tract infection) Disposition: TO HOME OR SELFCARE Is pt being admited?: No Does the pt Need Aspirin: No Condition: Stable Instructions: Hydrocele, Adult, Urinary Tract Infection, Adult Additional Instructions: return if worse Referrals: [facility] [Primary Care Provider] - 3-5 Days TAYLOR SHUKLA MD [Staff Physician] - 3-5 Days [facility], [Provider Group] - 3-5 Days [facility] [Provider Group] - 3-5 Days [facility] [Outside] - 3-5 Days Time of Disposition: 17:51
== END 2020-05-13 18:53 | disposition home or self-care (01) ==
LOC: ED 13:41
DX: N43.3 Hydrocele, unspecified (principal); N39.0 Urinary tract infection, site not specified; F17.200 Nicotine dependence, unspecified, uncomplicated; F12.10 Cannabis abuse, uncomplicated; Z79.899 Other long term (current) drug therapy
CPT/HCPCS: 36415; 80048; 81001; 85025; 87086; 93975; 96372; 99284; J0696; Q0162

== ENCOUNTER 2020-10-02 19:46 | Emergency (ER) | payer SELFPAY | END 2020-10-02 20:55 | disposition left against medical advice (07) | LOC: ED 19:46 | DX: Z00.8 Encounter for other general examination (principal); Z53.21 Procedure and treatment not carried out due to patient leaving prior to being seen by health care provider ==